=== PATIENT | male | born 1990 | race Caucasian/White ===

== ENCOUNTER 2017-05-01 15:06 | Emergency (ER) | payer SELFPAY | END 2017-05-01 15:33 | disposition left against medical advice (07) | LOC: ER 15:06 | DX: Z53.21 Procedure and treatment not carried out due to patient leaving prior to being seen by health care provider (principal) ==

== ENCOUNTER 2018-01-03 22:06 | Inpatient (IN) | payer SELFPAY ==
[2018-01-03] MEDS ORDERED: LACTATED RINGERS 1,000 ML IVS ONE (23:12)
--- NOTE | 2018-01-03 23:15 | ED.PDOC ---
History of Present Illness - General Chief Complaint: Respiratory Problem Stated Complaint: shortness of breath, right back sharp pain Time Seen by Provider: 01/03/18 23:10 Source: patient Exam Limitations: no limitations - History of Present Illness Comments: Duong Kearns Timing/Duration: constant, other - 2 days Cough Quality/Degree: dry cough Possible Cause: no prior episodes Improving Factors: nothing Worsening Factors: nothing Associated Symptoms: nasal congestion, other - pleuritic cp on coughing Allergies/Adverse Reactions: Allergies NO KNOWN ALLERGY Allergy (Verified 01/03/18 22:30) Home Medications: Ambulatory Orders NK [NK] 01/03/18 Review of Systems - Review of Systems Constitutional: States: fever EENTM: States: nose congestion Respiratory: States: see HPI Cardiology: States: no symptoms reported Gastrointestinal/Abdominal: States: no symptoms reported Genitourinary: States: no symptoms reported Musculoskeletal: States: no symptoms reported Skin: States: no symptoms reported Neurological: States: no symptoms reported Endocrine: States: no symptoms reported Hematologic/Lymphatic: States: no symptoms reported Past Medical History (General) - Patient Medical History Hx Seizures: No Hx Stroke: No Hx Dementia: No Hx Asthma: No Hx of COPD: No Hx Cardiac Disorders: No Hx Congestive Heart Failure: No Hx Pacemaker: No Hx Hypertension: No Hx Thyroid Disease: No Hx Diabetes: No Hx Gastroesophageal Reflux: No Hx Renal Disease: No Hx Cancer: No Hx of HIV: No Hx Hepatitis C: No Hx MRSA: No Surgical History: other - Vaccination History Hx Tetanus, Diphtheria Vaccination: No Hx Influenza Vaccination: No Hx Pneumococcal Vaccination: No - Social History Hx Alcohol Use: Yes - social Hx Physical Abuse: No Hx Emotional Abuse: No Family Medical History - Family History Mother Family History: Unknown Physical Exam - Physical Exam General Appearance: Alert, Comfortable Eye Exam: bilateral normal ENT Exam: normal ENT inspection, hearing grossly normal, TMs normal Neck: full range of motion, supple, normal inspection, trachea midline Respiratory: no respiratory distress, no accessory muscle use, other - coarse breath sounds Cardiovascular/Chest: regular rate, rhythm, no murmur Gastrointestinal/Abdominal: non tender, soft, no organomegaly Extremity: no pedal edema, no calf tenderness Neurologic: alert, oriented x 3 Skin Exam: normal color, warm/dry Progress - Progress Progress: 01/03/18 23:16 Vital Signs - 24 hr 01/03/18 01/03/18 22:12 22:24 Temperature 101.3 F H Pulse Rate [ 127 H monitor] Respiratory 30 H 30 H Rate Blood Pressure 126/83 [Left Arm] O2 Sat by Pulse 100 Oximetry - Results/Orders Results/Orders: 01/03/18 23:12 IV Care:Saline Lock per Protoc QSHIFT D-DIMER,QUANTITATIVE Stat 01/03/18 23:14 URINE DRUG SCREEN, 7 ASSAY Stat 01/03/18 23:57 Flu A&B [INFLUENZA A & B ANTIGEN] Stat 01/04/18 00:57 BLOOD CULTURE Stat 01/04/18 01:15 Azithromycin IV [Zithromax IV] 500 mg Sodium Chloride 0.9% 250Ml [NS 250ml] 250 ml IVPB ONCE cefTRIAXone SODIUM [Rocephin] 2 gm Sodium Chl 0.9% 100Ml Mini-Bag [NS 100ml MINI-BAG+] 100 ml IVPB ONCE 01/04/18 09:00 [facility] Daily Laboratory Results - last 24 hr 01/03/18 01/03/18 01/03/18 23:12 23:12 23:12 WBC 14.1 H RBC 5.05 Hgb 14.9 Hct 43.5 MCV 86.2 MCH 29.5 MCHC 34.3 RDW 12.4 Plt Count 162 MPV 6.7 L Absolute Neuts (auto) 13.40 H Absolute Lymphs (auto) 0.50 L Absolute Monos (auto) 0.20 Absolute Eos (auto) 0.00 Absolute Basos (auto) 0.00 Neutrophils % 94.8 H Lymphocytes % 3.7 L Monocytes % 1.4 L Eosinophils % 0.0 L Basophils % 0.1 Sodium 130 L Potassium 3.9 Chloride 96 L Carbon Dioxide 26 Anion Gap 11.9 L BUN 12 Creatinine 1.05 BUN/Creatinine Ratio 11.4 Random Glucose 162 H Serum Osmolality 264.1 L Lactic Acid 2.3 H Calcium 8.7 Total Bilirubin 0.8 AST 22 ALT 18 Alkaline Phosphatase 73 Serum Total Protein 6.7 Albumin 4.2 Globulin 2.5 Albumin/Globulin Ratio 1.7 Urine Color Urine Appearance Urine pH Ur Specific [place] Urine Protein Urine Glucose (UA) Urine Ketones Urine Blood Urine Nitrite Urine Bilirubin Urine Urobilinogen Ur Leukocyte Esterase Urine RBC Urine WBC Ur Epithelial Cells Urine Bacteria Urine Mucus 01/04/18 00:43 WBC RBC Hgb Hct MCV MCH MCHC RDW Plt Count MPV Absolute Neuts (auto) Absolute Lymphs (auto) Absolute Monos (auto) Absolute Eos (auto) Absolute Basos (auto) Neutrophils % Lymphocytes % Monocytes % Eosinophils % Basophils % Sodium Potassium Chloride Carbon Dioxide Anion Gap BUN Creatinine BUN/Creatinine Ratio Random Glucose Serum Osmolality Lactic Acid Calcium Total Bilirubin AST ALT Alkaline Phosphatase Serum Total Protein Albumin Globulin Albumin/Globulin Ratio Urine Color Yellow Urine Appearance Clear Urine pH 5.5 Ur Specific [place] 1.025 Urine Protein Negative Urine Glucose (UA) Negative Urine Ketones Negative Urine Blood Negative Urine Nitrite Negative Urine Bilirubin Negative Urine Urobilinogen 0.2 Ur Leukocyte Esterase Negative Urine RBC 0-1 Urine WBC 0-1 Ur Epithelial Cells 0 Urine Bacteria 0 Urine Mucus Moderate 01/03/18 23:12 IV Care:Saline Lock per Protoc QSHIFT 01/04/18 00:57 BLOOD CULTURE Stat 01/04/18 01:34 ED Intent to Admit Routine 01/04/18 03:08 SVN/Updraft Therapy .ONCE [facility]/04/18 09:[facility] Daily Laboratory Results - last 24 hr 01/03/18 01/03/18 01/03/18 00:50 23:12 23:12 WBC 14.1 H RBC 5.05 Hgb 14.9 Hct 43.5 MCV 86.2 MCH 29.5 MCHC 34.3 RDW 12.4 Plt Count 162 MPV 6.7 L Absolute Neuts (auto) 13.40 H Absolute Lymphs (auto) 0.50 L Absolute Monos (auto) 0.20 Absolute Eos (auto) 0.00 Absolute Basos (auto) 0.00 Neutrophils % 94.8 H Lymphocytes % 3.7 L Monocytes % 1.4 L Eosinophils % 0.0 L Basophils % 0.1 D-Dimer, Quantitative 0.25 Sodium Potassium Chloride Carbon Dioxide Anion Gap BUN Creatinine BUN/Creatinine Ratio Random Glucose Serum Osmolality Lactic Acid Calcium Total Bilirubin AST ALT Alkaline Phosphatase Serum Total Protein Albumin Globulin Albumin/Globulin Ratio Urine Color Urine Appearance Urine pH Ur Specific [place] Urine Protein Urine Glucose (UA) Urine Ketones Urine Blood Urine Nitrite Urine Bilirubin Urine Urobilinogen Ur Leukocyte Esterase Urine RBC Urine WBC Ur Epithelial Cells Urine Bacteria Urine Mucus Urine Opiates Screen Negative Urine Barbiturates Negative Ur Phencyclidine Scrn Negative U Amphetamin/Meth Scrn Positive H U Benzodiazepines Scrn Negative U Cocaine Metab Screen Negative U Cannabinoids Screen Positive H 01/03/18 01/03/18 01/04/18 23:12 23:12 00:43 WBC RBC Hgb Hct MCV MCH MCHC RDW Plt Count MPV Absolute Neuts (auto) Absolute Lymphs (auto) Absolute Monos (auto) Absolute Eos (auto) Absolute Basos (auto) Neutrophils % Lymphocytes % Monocytes % Eosinophils % Basophils % D-Dimer, Quantitative Sodium 130 L Potassium 3.9 Chloride 96 L Carbon Dioxide 26 Anion Gap 11.9 L BUN 12 Creatinine 1.05 BUN/Creatinine Ratio 11.4 Random Glucose 162 H Serum Osmolality 264.1 L Lactic Acid 2.3 H Calcium 8.7 Total Bilirubin 0.8 AST 22 ALT 18 Alkaline Phosphatase 73 Serum Total Protein 6.7 Albumin 4.2 Globulin 2.5 Albumin/Globulin Ratio 1.7 Urine Color Yellow Urine Appearance Clear Urine pH 5.5 Ur Specific [place] 1.025 Urine Protein Negative Urine Glucose (UA) Negative Urine Ketones Negative Urine Blood Negative Urine Nitrite Negative Urine Bilirubin Negative Urine Urobilinogen 0.2 Ur Leukocyte Esterase Negative Urine RBC 0-1 Urine WBC 0-1 Ur Epithelial Cells 0 Urine Bacteria 0 Urine Mucus Moderate Urine Opiates Screen Urine Barbiturates Ur Phencyclidine Scrn U Amphetamin/Meth Scrn U Benzodiazepines Scrn U Cocaine Metab Screen U Cannabinoids Screen 01/04/18 02:43 WBC RBC Hgb Hct MCV MCH MCHC RDW Plt Count MPV Absolute Neuts (auto) Absolute Lymphs (auto) Absolute Monos (auto) Absolute Eos (auto) Absolute Basos (auto) Neutrophils % Lymphocytes % Monocytes % Eosinophils % Basophils % D-Dimer, Quantitative Sodium Potassium Chloride Carbon Dioxide Anion Gap BUN Creatinine BUN/Creatinine Ratio Random Glucose Serum Osmolality Lactic Acid 1.4 Calcium Total Bilirubin AST ALT Alkaline Phosphatase Serum Total Protein Albumin Globulin Albumin/Globulin Ratio Urine Color Urine Appearance Urine pH Ur Specific [place] Urine Protein Urine Glucose (UA) Urine Ketones Urine Blood Urine Nitrite Urine Bilirubin Urine Urobilinogen Ur Leukocyte Esterase Urine RBC Urine WBC Ur Epithelial Cells Urine Bacteria Urine Mucus Urine Opiates Screen Urine Barbiturates Ur Phencyclidine Scrn U Amphetamin/Meth Scrn U Benzodiazepines Scrn U Cocaine Metab Screen U Cannabinoids Screen - EKG/XRAY/CT XRAY: chest - PNA -RUL Departure - Departure Clinical Impression: Pneumonia Qualifiers: Pneumonia type: due to unspecified organism Laterality: right Lung location: upper lobe of lung Qualified Code(s): J18.1 - Lobar pneumonia, unspecified organism Time of Disposition: 01:32 Disposition: Admit Patient Condition: Fair Departure Forms: ED Discharge - Pt. Copy, Patient Portal Self Enrollment Home Medications: Ambulatory Orders NK [NK] 01/03/18 Decision To Admit - Decistion To Admit Decision to Admit Reason: Admit from ER Decision to Admit Date: 01/04/18 - D/W Zina Kearns-ANP/Hospitalist Decision to Admit Time: 01:34
[2018-01-03] MEDS ORDERED: IPRATROPIUM/ALBUTEROL 3 ML VIAL NEB ONE (23:30)
[2018-01-04] MEDS ORDERED: KETOROLAC TROMETHAMINE INJ 30 MG/ML VIAL ONE (00:32)
[2018-01-04] MEDS ORDERED: KETOROLAC TROMETHAMINE INJ 30 MG/ML VIAL IV ONE (00:32)
--- NOTE | 2018-01-04 00:57 | RAD ---
EXAM DESCRIPTION: Chest,2 Views CLINICAL HISTORY: 27 years Male, SOB COMPARISON: None. FINDINGS: There is opacity in the right upper lobe. No pneumothorax. No significant pleural effusion. Cardiomediastinal silhouette is unremarkable. Osseous structures are unremarkable. IMPRESSION: Right upper lobe opacity concerning for pneumonia. Electronically signed by: Jeffy Broussard MD 01/03/2018 11:51 PM CDT
[2018-01-04] MEDS ORDERED: IPRATROPIUM/ALBUTEROL 3 ML VIAL NEB ONE ×2 (01:07→03:08)
[2018-01-04] MEDS ORDERED: AZITHROMYCIN IV 500 MG in SODIUM CHLORIDE 0.9% 250ML 250 ML IVPB ONE (01:15)
[2018-01-04] MEDS ORDERED: cefTRIAXone SODIUM 2 GM in SODIUM CHL 0.9% 100ML MINI-BAG 100 ML IVPB ONE (01:15)
[2018-01-04] MEDS ORDERED: SODIUM CHLORIDE 0.9% 250ML 250 ML ONE ×4 (01:27→19:58)
[2018-01-04] MEDS ORDERED: AZITHROMYCIN IV 500 MG VIAL IVPB ONE ×2 (01:27→19:59)
[2018-01-04] MEDS ORDERED: SODIUM CHL 0.9% 100ML MINI-BAG 100 ML IVPB ONE ×4 (01:27→19:58)
[2018-01-04] MEDS ORDERED: SODIUM CHLORIDE 0.9% 1000ML 1,000 ML IVS ONE ×2 (01:46→08:16)
[2018-01-04] MEDS ORDERED: SODIUM CHLORIDE 0.9% 1000ML 1,000 ML ONE ×2 (01:47→08:17)
--- NOTE | 2018-01-04 03:48 | HP ---
SUPERVISING PHYSICIAN: Porter Michelle M.D. CHIEF COMPLAINT: Increasing shortness of breath. HISTORY OF PRESENT ILLNESS: Duong is a 27 year-old male patient that presented to the Emergency Department late last night with complaints of worsening shortness of breath. He does have a history of frequent methamphetamine abuse which he notes that he utilizes smoking rather than intravenous. His noted that over the last several days he started having a productive cough and increasing shortness of breath. The increasing shortness of breath became significantly worse last night, thus he presented to the Emergency Department for evaluation. Initial laboratory studies showed that he had a leukocytosis of 14,100 with a left shift. Initial radiographic studies, chest x-ray, two view chest showed right upper lobe opacity concerning for pneumonia. Initial vital signs on admission showed that he was running 103 temperature, was tachycardic at 130. Given the findings on his chest x-ray with concerns for community acquired pneumonia, the patient was started on antibiotic coverage after blood cultures were completed and started on treatment for community acquired pneumonia. In the E. R., he was initially given Rocephin and azithromycin along with fluid boluses. His initial lactic acid showed an elevation of 2.3, so there were concerns for sepsis. He is now admitted to the Medical/Surgical floor for further treatment of community acquired pneumonia and was admitted in stable condition. PAST MEDICAL HISTORY: No chronic medical history listed. PAST SURGICAL HISTORY: No surgical history noted. CURRENT MEDICATIONS: No chronic medications or [id number] or supplements. ALLERGIES: NO KNOWN DRUG ALLERGIES. FAMILY HISTORY: Noncontributory. SOCIAL HISTORY: The patient is . Has 2 children. He lives in [place], [place] and works for a welding shop. He notes that he does utilize methamphetamines by smoking at least every 2 to 3 days. He does note that he smokes cigarettes on a daily basis, approximately a pack and utilizes alcohol on a fairly regular basis. REVIEW OF SYSTEMS: CONSTITUTIONAL: As noted in History of Present Illness, positive fever, general malaise. HEENT: Positive for nasal congestion. Denies any sore throat, headaches, vision changes, ear aches. RESPIRATORY: As noted in History of Present Illness, positive for worsening shortness of breath, productive cough, wheezing. CARDIOVASCULAR: Denies any chest pains, palpitations, syncopal episodes. GASTROINTESTINAL: Denies any nausea, vomiting, diarrhea, constipation or abdominal pains. GENITOURINARY: Denies any dysuria, hematuria, polyuria or other urinary symptoms. NEUROLOGIC: Denies any ataxia, seizure activity, neuromotor deficits or syncopal episodes. PHYSICAL EXAMINATION: VITAL SIGNS: On admission showed temperature 103.0, pulse 130, blood pressure 118/72, respirations 30 to 32 with O2 saturations showing 81% on room air and 88 % on nasal cannula on 1 liter. GENERAL: The patient is very unkempt. He appears to be well hydrated, well nourished. On admission to the Medical/Surgical floor, was resting comfortably and appeared to be in no acute distress. HEENT: Tympanic membranes were clear bilaterally. Oropharynx was pink. Mucosal membranes were moist. No lesions or rashes. NECK: Supple, non-tender with full range of motion. No jugular venous distention. CHEST: Lungs were coarse throughout more so on the right than the left with some inspiratory and expiratory wheezing but no rales were noted. CARDIOVASCULAR: Regular rate and rhythm without appreciable murmurs, gallops, or rubs. ABDOMEN: Soft, non-tender. Positive bowel sounds. EXTREMITIES: No cyanosis, clubbing or edema. NEUROLOGIC: He was alert and oriented times three. Facial features were symmetrical. Extraocular movements are within normal limits. There is no notable nystagmus. INTEGUMENT: Skin was warm and dry with no lesions or rashes noted. PSYCHIATRIC: The patient has a very flat affect but nervous with rapid speech at times. Appearance is unkempt. He denied any hallucinations or suicidal or homicidal ideations. LABORATORY: White count on admission was 14,100 with hemoglobin 14.9, hematocrit 43.5, platelet count 162,000. Differential did show a left shift. Coagulation studies showed a normal D-dimer at 0.2. Chemistries showed a mild hyponatremia with sodium 130, potassium 3.9, carbon dioxide 26, anion gap was low at 11.9 with BUN 12, creatinine 1.05. Glucose initially was 162. Lactic acid initially was 2.3, after 4 hours of fluids recheck was 1.4. Liver functions all showed to be within normal limits. Urinalysis showed to be within normal limits. Urine drug screen showed positive for methamphetamines and cannabinoids. HIV 1 and 2 antibody rapid screen was negative. MICROBIOLOGY: Influenza A and B nasal swab antigen was negative for both A and B. Gram stain is pending. Sputum culture is pending. Blood culture is pending. RADIOLOGY: Chest x-ray, two view chest, showed right upper lobe opacity concerning for pneumonia. ASSESSMENT: 1. Community acquire pneumonia of the right upper lobe. 2. Sepsis secondary to #1 as noted with a leukocytosis, fever and tachycardia. 3. Electrolyte imbalance with hyponatremia secondary to #1. 4. Methamphetamine and cannabinoid abuse complicating #1. PLAN: The patient is going to be admitted to the Medical/Surgical floor for treatment and initiation of protocol for pneumonia with community acquired suspected with early sepsis. He was given antibiotics in the E. R. This will be followed-up with continued antibiotics with Unasyn, azithromycin and vancomycin with concerns for atypical given risk factors for multidrug resistance and possible Methicillin resistant Staphylococcus aureus awaiting final culture results to further target antibiotic therapy. He will be on aggressive pulmonary hygiene with DuoNeb treatments q.i.d., p.r.n. breathing treatment with Albuterol as needed and chest percussive therapy. Sputum culture has been collected. Again, will further target antibiotic therapy based off those results. He was given close to 3 liters of fluid totally between initial E. R. and admission. Will follow this up with maintenance fluids currently at 250 with normal saline and 20 of potassium with close monitoring of his I's and O's. He will be on DVT prophylaxis per protocol. Will anticipate his length of stay to be at least 2 to 3 days. Until then continue to monitor and treat appropriately. #[id number] [facility]
[2018-01-04] MEDS ORDERED: SODIUM CHLORIDE 0.9% (FLUSH) 10 ML SYG IV PRN (05:29)
[2018-01-04] MEDS ORDERED: ALBUTEROL SULFATE 2.5 MG/3 ML VIAL NEB PRN (05:29)
[2018-01-04] MEDS ORDERED: ACETAMINOPHEN 325 MG TAB PO PRN (05:29)
[2018-01-04] MEDS ORDERED: cefTRIAXone SODIUM 1 GM in SODIUM CHL 0.9% 50ML MIN-BAG+ 50 ML IVPB SCH (05:30)
[2018-01-04] MEDS ORDERED: IV SET AND CAP CHANGE INJ INJ SCH (05:30)
[2018-01-04] MEDS: PANTOPRAZOLE SODIUM IV 40 MG VIAL IV SCH (06:07)
[2018-01-04] MEDS ORDERED: IPRATROPIUM/ALBUTEROL 3 ML VIAL INH ONE (06:28)
--- NOTE | 2018-01-04 07:00 | RAD ---
EXAM DESCRIPTION: Chest,2 Views CLINICAL HISTORY:27 years Male, low oxygen sat Comparison: January 03, 2018 FINDINGS: Worsening right upper lung consolidation and right basilar opacities concerning for worsening pneumonia. Left lung is clear. Cardiac silhouette is within normal limits. No pneumothorax. Continued follow-up recommended. Electronically signed by: Codey Burkett MD 01/04/2018 6:58 AM CDT
[2018-01-04] MEDS: IPRATROPIUM/ALBUTEROL 3 ML VIAL INH SCH ×4 (08:19→20:23)
[2018-01-04] MEDS: SODIUM CHLORIDE 0.9% (FLUSH) 10 ML SYG IV SCH ×2 (08:22→20:45)
[2018-01-04] MEDS ORDERED: LORazepam 1 MG TAB PO ONE (08:34)
[2018-01-04] MEDS: IBUPROFEN 400 MG TAB PO PRN ×2 (08:46→18:19)
[2018-01-04] MEDS: KCL 20 MEQ/NS 1,000 ML IVS PRN ×2 (09:30→16:58)
[2018-01-04] MEDS: ENOXAPARIN SODIUM 40 MG/0.4 ML SYG SUBCU SCH (09:34)
[2018-01-04] MEDS ORDERED: AMPICILLIN & SULBACTAM SODIUM 3 GM VIAL ONE ×4 (09:37→19:59)
[2018-01-04] MEDS: AMPICILLIN & SULBACTAM SODIUM 3 GM in SODIUM CHL 0.9% 100ML MINI-BAG 100 ML IVPB SCH ×3 (09:48→20:37)
[2018-01-04] MEDS ORDERED: VANCOMYCIN HCL INJ 500 MG VIAL ONE (10:29)
[2018-01-04] MEDS ORDERED: VANCOMYCIN HCL INJ 1,000 MG VIAL IVPB ONE ×3 (10:29→19:59)
[2018-01-04] MEDS ORDERED: VANCOMYCIN HCL INJ 1,000 MG, VANCOMYCIN HCL INJ 500 MG in SODIUM CHLORIDE 0.9% 250ML 25... IVPB SCH (10:30)
[2018-01-04] MEDS ORDERED: VANCOMYCIN PER PHARMACY INJ SCH (10:30)
[2018-01-04] MEDS: VANCOMYCIN HCL INJ 1,000 MG in SODIUM CHLORIDE 0.9% 250ML 250 ML IVPB SCH (17:35)
[2018-01-04] MEDS ORDERED: KETOROLAC TROMETHAMINE INJ 30 MG/ML VIAL IV PRN (19:07)
[2018-01-04] MEDS: guaiFENesin ER TAB 600 MG TAB PO SCH (20:44)
[2018-01-05] MEDS ORDERED: SODIUM CHL 0.9% 100ML MINI-BAG 100 ML IVPB ONE ×4 (01:07→20:23)
[2018-01-05] MEDS ORDERED: AMPICILLIN & SULBACTAM SODIUM 3 GM VIAL ONE ×4 (01:08→20:23)
[2018-01-05] MEDS: VANCOMYCIN HCL INJ 1,000 MG in SODIUM CHLORIDE 0.9% 250ML 250 ML IVPB SCH (01:29)
[2018-01-05] MEDS: AMPICILLIN & SULBACTAM SODIUM 3 GM in SODIUM CHL 0.9% 100ML MINI-BAG 100 ML IVPB SCH ×4 (03:00→21:21)
[2018-01-05] MEDS ORDERED: AZITHROMYCIN IV 500 MG in SODIUM CHLORIDE 0.9% 250ML 250 ML IVPB SCH (03:00)
[2018-01-05] MEDS: KCL 20 MEQ/NS 1,000 ML IVS PRN (05:30)
[2018-01-05] MEDS: PANTOPRAZOLE SODIUM IV 40 MG VIAL IV SCH (06:02)
--- NOTE | 2018-01-05 07:00 | RAD ---
EXAM DESCRIPTION: Chest,2 Views CLINICAL HISTORY:27 years Male, Pneumonia Comparison: January 04, 2018 FINDINGS: Slight interval worsening of right upper lobe consolidation and right basilar opacities suspicious for pneumonia. Left lung is clear. Cardiac silhouette within normal limits. Electronically signed by: Codey Burkett MD 01/05/2018 6:59 AM CDT
[2018-01-05] MEDS ORDERED: SODIUM CHLORIDE 0.9% 250ML 250 ML ONE ×4 (07:35→20:25)
[2018-01-05] MEDS ORDERED: VANCOMYCIN HCL INJ 1,000 MG VIAL IVPB ONE ×3 (07:36→20:24)
[2018-01-05] MEDS ORDERED: SODIUM CHLORIDE 0.9% (FLUSH) 10 ML SYG IV ONE (07:40)
[2018-01-05] MEDS: IPRATROPIUM/ALBUTEROL 3 ML VIAL INH SCH ×4 (08:29→20:19)
[2018-01-05] MEDS: ENOXAPARIN SODIUM 40 MG/0.4 ML SYG SUBCU SCH (09:23)
[2018-01-05] MEDS: SODIUM CHLORIDE 0.9% (FLUSH) 10 ML SYG IV SCH ×2 (09:23→21:21)
[2018-01-05] MEDS: guaiFENesin ER TAB 600 MG TAB PO SCH ×2 (09:23→21:20)
[2018-01-05] MEDS: VANCOMYCIN HCL INJ 1,000 MG, VANCOMYCIN HCL INJ 250 MG in SODIUM CHLORIDE 0.9% 250ML 25... IVPB SCH ×2 (10:07→17:50)
[2018-01-05] MEDS ORDERED: VANCOMYCIN HCL INJ 500 MG VIAL ONE ×3 (10:08→20:24)
[2018-01-05] MEDS: IBUPROFEN 400 MG TAB PO PRN (12:06)
[2018-01-05] MEDS ORDERED: AZITHROMYCIN IV 500 MG VIAL IVPB ONE (20:26)
[2018-01-05] MEDS ORDERED: PERMETHRIN 5% 60 GM TUBE TOP ONE (21:44)
--- NOTE | 2018-01-06 00:35 | PN ---
DATE: 01/05/18 SUPERVISING PHYSICIAN: Porter Michelle M.D. SUBJECTIVE: The patient is resting in bed. Continues to have a significant amount of coughing and some shortness of breath on nasal cannula. He also notes that he is having some significant discomfort in his right wrist and he has chronic issues with carpal tunnel. OBJECTIVE: He has been afebrile since admission with T max temperature of 98.8. Heart rate 91, blood pressure 97/62, respirations 16, satting 99% on nasal cannula at 2 liters. I's and O's show a positive balance of 2183. He has been saline locked. Weight is 73.9 kg. GENERAL: The patient appears to be comfortable in no acute distress. CHEST: Lung sounds are significantly diminished on the right compared to the left with continued rhonchi heard more prominently on the right lateral posterior aspect with no wheezing. HEART: Regular rate and rhythm. ABDOMEN: Soft, non-tender. Positive bowel sounds. EXTREMITIES: Without any clubbing, cyanosis or edema. There is notable discomfort on palpation to the right wrist with some notable decreased sensation more so on the lateral dorsal aspect of the hand. Pulses were strong bilaterally. NEUROLOGIC: He is alert and oriented times three. LABORATORY: White count is down to 11,600, hemoglobin 12.3, hematocrit 37.2, platelet count 131,000. Differential continues to show a left shift. Chemistries show normal electrolytes today with potassium 4.2, sodium 138, BUN 12, creatinine 0.79. Liver functions showing to be within normal limits. Urinalysis was within normal limits. MICROBIOLOGY: Blood cultures remain negative. Gram stain and sputum culture is pending. RADIOLOGY: Repeat chest x-ray this morning per radiology interpretation shows slight interval worsening of the right upper lobe consolidation with right basilar opacity suspicious for pneumonia. Left lung is clear. ASSESSMENT: 1. Right sided pneumonia, community acquired. 2. Sepsis secondary to #1 as noted with a leukocytosis, fever and tachycardia showing improvement with parenteral antibiotics. 3. Electrolyte imbalance with hyponatremia secondary to #1 showing improvement with fluids. 4. Methamphetamine and cannabinoid abuse complicating #1. PLAN: Will continue with current antibiotic therapy at this point with vancomycin, azithromycin and Unasyn. Await cultures results to further target antibiotic therapy. He continues on aggressive pulmonary hygiene and DuoNeb treatments. He has been saline locked at this point and hopefully be able to discharge as soon as culture results are back. He is encouraged to ambulate and again hopefully be able to discharge either tomorrow or the next day as soon as cultures results are available or as he clinically improves. Until then , will continue to monitor and treat appropriately. #[id number] [facility]
[2018-01-06] MEDS ORDERED: AMPICILLIN & SULBACTAM SODIUM 3 GM VIAL ONE ×2 (01:39→08:51)
[2018-01-06] MEDS ORDERED: SODIUM CHL 0.9% 100ML MINI-BAG 100 ML IVPB ONE ×2 (01:39→08:50)
[2018-01-06] MEDS: VANCOMYCIN HCL INJ 1,000 MG, VANCOMYCIN HCL INJ 250 MG in SODIUM CHLORIDE 0.9% 250ML 25... IVPB SCH (02:24)
[2018-01-06] MEDS: AMPICILLIN & SULBACTAM SODIUM 3 GM in SODIUM CHL 0.9% 100ML MINI-BAG 100 ML IVPB SCH ×2 (03:52→09:13)
[2018-01-06 04:51] VITALS: O2SAT 96
[2018-01-06] MEDS ORDERED: AZITHROMYCIN IV 500 MG in SODIUM CHLORIDE 0.9% 250ML 250 ML IVPB SCH (05:00)
[2018-01-06 06:04] VITALS: BP 112/80; TEMP 98.8
[2018-01-06] MEDS: PANTOPRAZOLE SODIUM IV 40 MG VIAL IV SCH (06:09)
[2018-01-06] MEDS ORDERED: SODIUM CHLORIDE 0.9% 250ML 0 ML ONE (08:50)
[2018-01-06] MEDS ORDERED: VANCOMYCIN HCL INJ 500 MG VIAL ONE (08:50)
[2018-01-06] MEDS ORDERED: VANCOMYCIN HCL INJ 1,000 MG VIAL IVPB ONE (08:51)
[2018-01-06] MEDS: guaiFENesin ER TAB 600 MG TAB PO SCH (09:06)
[2018-01-06] MEDS: ENOXAPARIN SODIUM 40 MG/0.4 ML SYG SUBCU SCH (09:38)
[2018-01-06] MEDS: SODIUM CHLORIDE 0.9% (FLUSH) 10 ML SYG IV SCH (09:39)
[2018-01-06] MEDS: IPRATROPIUM/ALBUTEROL 3 ML VIAL INH SCH (10:44)
--- NOTE | 2018-01-06 11:22 | DS ---
SUPERVISING PHYSICIAN: Roscoe Michelle MD ADMISSION DIAGNOSIS: 1. Community acquired pneumonia in the right upper lobe. 2. Sepsis secondary to #1. 3. Electrolyte imbalance with hyponatremia. 4. Methamphetamine and cannabinoid use. DISCHARGE DIAGNOSIS: 1. Community acquired pneumonia in the right upper lobe. 2. Sepsis secondary to #1. 3. Electrolyte imbalance with hyponatremia. 4. Methamphetamine and cannabinoid use. 5. Scabies. HOSPITAL COURSE: This is a 27-year-old male who came to the Emergency Room on the evening of 01/03/18 with shortness of breath. He does utilize methamphetamines. He smokes, but does not use it IV. However, over the last several days prior to admission, he had a productive cough with shortness of breath. Due to the worsening, he came to the Emergency Room and was noted to have a white count of 14,000 along with chest x-ray which showed a right upper lobe pneumonia. He also had a fever of 103 and was tachycardic. For these reasons, he was admitted on Rocephin and azithromycin. Initial lactic acid was 2.3 as well. Over the next couple of days, he was on the IV antibiotics which were eventually changed to Unasyn due to concern for aspiration pneumonia along with azithromycin. He was also give some vancomycin. His white count did improve and he improved clinically as well. However, the patient was quite adamant on the morning of 01/06/18 that he go home. I did discuss with him that his pneumonia had not resolved and still showed a pretty significant infiltrate in the right upper lobe. However, the patient pretty much insisted that he go home. Due to his stable vital signs and oxygen saturations, I did tell him we could discharge him on p.o. Levaquin, but that he would need to complete the antibiotic regimen and followup with a primary care physician. He states that his [id number] sees a doctor in [place] that he wanted to see. Therefore, discharge instruction state that he needs a followup chest x- ray as well as lab work. He has also been instructed that he needs to return to the Emergency Room with any worsening shortness of breath, fever or chills or overall worsening symptoms. He agreed to this. Therefore, the patient was discharged on Levaquin 750 mg p.o. daily for 7 days. I also gave him a prescription for permethrin due to the fact that he had some scabies. DISCHARGE DIET: Resume usual diet. ACTIVITY: Increase as tolerated. [facility][id number] [facility]
== END 2018-01-06 09:40 | disposition home or self-care (01) | DRG 871 ==
LOC: ER 22:06 → MS 01-04 03:47 → OBSVTOIN 01-04 03:47
PROVIDERS: ADMIT Nurse Practitioner Family; ATTEND Nurse Practitioner
DX: A41.9 Sepsis, unspecified organism (principal); J18.9 Pneumonia, unspecified organism; E87.1 Hypo-osmolality and hyponatremia; B86 Scabies; F15.90 Other stimulant use, unspecified, uncomplicated; F12.90 Cannabis use, unspecified, uncomplicated; F17.210 Nicotine dependence, cigarettes, uncomplicated

== ENCOUNTER → 2018-04-19 | Emergency (ER) | payer SELFPAY | LOC: ER 19:32 | DX: L03.116 Cellulitis of left lower limb (principal); Z87.891 Personal history of nicotine dependence ==

== ENCOUNTER 2018-04-20 09:32 | Emergency (ER) | payer SELFPAY ==
[2018-04-20 09:46] VITALS: TEMP 97.9
[2018-04-20] MEDS ORDERED: SULFA/TRIMETH 800/160 (DS) TAB 1 EA TAB PO ONE (09:46)
[2018-04-20] MEDS ORDERED: cefTRIAXone SODIUM 1 GM VIAL IM ONE (09:46)
--- NOTE | 2018-04-20 09:49 | ED.PDOC ---
History of Present Illness - General Chief Complaint: Skin/Abrasion/Tear Stated Complaint: abscess Time Seen by Provider: 04/20/18 09:45 Source: patient Exam Limitations: no limitations - History of Present Illness Initial Comments: The patient is 27 yr-old male presenting to the emergency room secondary to cellulitis of the left lower extremity to the medial aspect of the left knee. There is a small pustule with significant surrounding cellulitis but infection does not really appear to extend into the knee joint at this time. No symptomatic systemic symptoms. Timing/Duration: other Severity: mild Improving Factors: nothing Worsening Factors: nothing Associated Symptoms: denies symptoms Allergies/Adverse Reactions: Allergies NO KNOWN ALLERGY Allergy (Verified 04/20/18 09:46) Home Medications: Ambulatory Orders Levofloxacin [Levaquin] 750 mg PO DAILY 7 Days #7 tablet 01/06/18 Permethrin 5% [Elimite] 60 gm TOP ONCE 1 Days #1 tube 01/06/18 Sulfa/Trimeth 800/160 (Ds) Tab [Bactrim DS Tab] 1 ea PO BID #14 tab 04/20/18 Review of Systems - Review of Systems Constitutional: States: no symptoms reported EENTM: States: no symptoms reported Respiratory: States: no symptoms reported Cardiology: States: no symptoms reported Gastrointestinal/Abdominal: States: no symptoms reported Genitourinary: States: no symptoms reported Musculoskeletal: States: no symptoms reported Skin: States: see HPI Neurological: States: no symptoms reported Endocrine: States: no symptoms reported All other Systems: No Change from Baseline Past Medical History (General) - Patient Medical History Hx Seizures: No Hx Stroke: No Hx Dementia: No Hx Asthma: No Hx of COPD: No Hx Cardiac Disorders: No Hx Congestive Heart Failure: No Hx Pacemaker: No Hx Hypertension: No Hx Thyroid Disease: No Hx Diabetes: No Hx Gastroesophageal Reflux: No Hx Renal Disease: No Hx Cancer: No Hx of HIV: No Hx Hepatitis C: No Hx MRSA: No Surgical History: other - Vaccination History Hx Tetanus, Diphtheria Vaccination: No Hx Influenza Vaccination: No Hx Pneumococcal Vaccination: No - Social History Hx Tobacco Use: Yes Hx Alcohol Use: No Hx Substance Use: Yes - occasional marijuana Hx Physical Abuse: No Hx Emotional Abuse: No Family Medical History - Family History Mother Family History: Unknown Living Status: Still Living Hx Family Asthma: No Hx Family Congestive Heart Failure: No Hx Family Hypertension: No Hx Family Stroke: No Hx Cardiac Disease: No Hx Family Diabetes: No Hx Family Cancer: No Father Living Status: Still Living Hx Family Asthma: No Hx Family Congestive Heart Failure: No Hx Family Hypertension: No Hx Family Stroke: No Hx Cardiac Disease: No Hx Family Diabetes: No Hx Family Cancer: No Physical Exam - Physical Exam General Appearance: Alert, Comfortable, No apparent distress Eye Exam: bilateral normal Ears, Nose, Throat: hearing grossly normal, normal ENT inspection Neck: full range of motion Respiratory: no respiratory distress, no accessory muscle use Cardiovascular/Chest: normal peripheral pulses, no edema Peripheral Pulses: dorsalis pedis,right: 2+, dorsalis pedis,left: 2+ Rectal Exam: deferred Back Exam: normal inspection Extremity: normal range of motion, no pedal edema, no calf tenderness, normal capillary refill, other - full active and passive range of motion of the left knee without significant pain. 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 Small pustule was unroofed but no significant amount of pus was obtained. The patient was given 1 dose of IM Rocephin and a dose of Bactrim and will be placed on Bactrim twice daily for the next 7 days. He needs to avoid alcohol with this medication and he does need to take it with food prevent stomach upset. ER warnings were given for any significant worsening. No evidence of any deeper tissue infection at this time. Keep routine follow up with primary care doctor otherwise. Departure - Departure Clinical Impression: Cellulitis Qualifiers: Site of cellulitis: extremity Site of cellulitis of extremity: lower extremity Laterality: left Qualified Code(s): L03.116 - Cellulitis of left lower limb Disposition: Discharge to Home or Self Care Condition: Fair Departure Forms: ED Discharge - Pt. Copy, Patient Portal Self Enrollment Instructions: DI for Wound Infection Diet: regular diet Activity: increase activity as tolerated Prescriptions: Sulfa/Trimeth 800/160 (Ds) Tab [Bactrim DS Tab] 1 ea PO BID #14 tab Home Medications: Ambulatory Orders Levofloxacin [Levaquin] 750 mg PO DAILY 7 Days #7 tablet 01/06/18 Permethrin 5% [Elimite] 60 gm TOP ONCE 1 Days #1 tube 01/06/18 Sulfa/Trimeth 800/160 (Ds) Tab [Bactrim DS Tab] 1 ea PO BID #14 tab 04/20/18 Additional Instructions: the patient is a 27-year-old male presenting secondary to cellulitis to the skin over the medial aspect of the left knee. Small pustule was unroofed but no significant amount of pus was obtained. The patient was given 1 dose of IM Rocephin and a dose of Bactrim and will be placed on Bactrim twice daily for the next 7 days. He needs to avoid alcohol with this medication and he does need to take it with food prevent stomach upset. ER warnings were given for any significant worsening. No evidence of any deeper tissue infection at this time. Keep routine follow up with primary care doctor otherwise.
[2018-04-20 10:17] VITALS: BP 106/67; O2SAT 97
== END 2018-04-20 10:17 | disposition home or self-care (01) ==
LOC: ER 09:32
DX: L03.116 Cellulitis of left lower limb (principal); Z87.891 Personal history of nicotine dependence